=== PATIENT | male | born 1995 | race Two or more races ===

== ENCOUNTER 2018-03-31 17:41 | Emergency (ER) | payer BC ==
[~2018-03-31] VITALS: Ht 188 cm; Wt 81.6 kg
[2018-03-31 17:54] VITALS: BP 136/77
== END 2018-03-31 22:40 | disposition home or self-care (01) ==
LOC: ER 17:53
DX: M54.2 Cervicalgia (principal); M54.5 Low back pain; V43.52XA Car driver injured in collision with other type car in traffic accident, initial encounter; Y93.89 Activity, other specified; Y99.8 Other external cause status; Y92.410 Unspecified street and highway as the place of occurrence of the external cause
CPT/HCPCS: 71046; 72040; 72100; 93005